=== PATIENT | male | born 1970 | race Caucasian/White ===

== ENCOUNTER 2017-08-15 11:36 | Emergency (ER) | payer SELFPAY ==
[2017-08-15 12:18] VITALS: BP 141/96
== END 2017-08-15 15:05 | disposition home or self-care (01) ==
LOC: ED 11:36
DX: S83.411A Sprain of medial collateral ligament of right knee, initial encounter (principal); X58.XXXA Exposure to other specified factors, initial encounter; Y93.89 Activity, other specified; Y99.8 Other external cause status; Y92.89 Other specified places as the place of occurrence of the external cause